=== PATIENT | male | born 1960 | race Caucasian/White ===

== ENCOUNTER → 2020-02-23 07:39 | Outpatient (CLI) | payer OTHER, SELFPAY ==
[2020-02-23 09:30] LABS: Alanine Aminotransferase 20 IU/L (<50); Albumin 4.1 g/dL (3.5-5.0); Albumin Globulin Ratio 1.4 (1.0-2.8); Alkaline Phosphatase 53 U/L (38-126); Aspartate Aminotransferase 32 IU/L (17-59); BUN Creatinine Ratio 15.9 (6-22); Bilirubin Total 0.6 mg/dL (0.2-1.3); Blood Urea Nitrogen 11 mg/dL (9-20); Calcium 9.2 mg/dL (8.4-10.2); Carbon Dioxide 35 mmol/L (22-32); Chloride 102 mmol/L (98-107); Cholesterol 241 mg/dL (140-199); Estimated Glomerular Filt Rate > 60.0 mL/min (>60); Globulin 2.9 g/dL (1.7-4.1); Glucose 100 mg/dL (70-100); HEMOLYSIS < 15 (0-50); Potassium 4.5 mmol/L (3.4-5.1); Sodium 137 mmol/L (137-145); Triglycerides 46 mg/dL (35-150)
[2020-02-23 09:47] LABS: HDL Cholesterol 114 mg/dL (40-60); LDL Cholesterol Calculated 118 mg/dL (<100)
[2020-02-23 09:59] LABS: Prostate Specific Antigen 0.825 ng/mL (0.10-4.00)
== END ==
PROVIDERS: PCP Internal Medicine; Referring Provider Internal Medicine; Visit Provider Internal Medicine
DX: Z12.5 Encounter for screening for malignant neoplasm of prostate (principal)
CPT/HCPCS: 36415; 80053; 80061; 84153

== ENCOUNTER → 2020-02-26 14:38 | Outpatient (ROUT) | payer OTHER, SELFPAY ==
[2020-02-26 15:36] LABS: TSH w/ Reflex to FT4 1.43 uIU/mL (0.47-4.68)
[2020-02-26 16:52] LABS: Vitamin B12 697 pg/mL (239-931)
== END ==
PROVIDERS: PCP Internal Medicine; Visit Provider Internal Medicine
DX: R20.0 Anesthesia of skin (principal)
CPT/HCPCS: 82607; 84443

== ENCOUNTER 2024-06-04 21:30 | Emergency (ER) | payer OTHER, SELFPAY ==
[2024-06-04] VITALS (24 sets, daily range): BP systolic 125–153; BP diastolic 68–87; PULSE 86–100; RESP 13–24; TEMP 36.4; O2SAT 94–100; BMI 21.9
--- NOTE | 2024-06-04 21:44 | DI.CT.S_ITS ---
PROCEDURE: CT CHEST ABD PEL W CON INDICATIONS: Trauma TECHNIQUE: After the administration of intravenous contrast, 5 mm thick sections acquired from the lung apices to the symphysis. 2.5 mm thick coronal and sagittal reformats were acquired. Additional 7 mm thick coronal maximum intensity projection (MIP) reformats acquired through the lungs. Optional 10-minute delayed imaging may be performed from the kidneys to the bladder. For radiation dose reduction, the following was used: automated exposure control, adjustment of mA and/or kV according to patient size. COMPARISON: None. FINDINGS: Image quality: Diagnostic. CHEST: Lower Neck: No enlarged lymph nodes. Thyroid: Normal CT appearance. Axillae: No enlarged lymph nodes. Chest Wall: No subcutaneous gas. Lungs and Pleura: No pulmonary contusions or lacerations. No acute airspace opacities. No pneumothorax or hemothorax. Mediastinum: No mediastinal hematomas. Heart size is normal. No pericardial effusion. Thoracic aorta and pulmonary arteries demonstrate normal size and enhancement. Incidental note of normal variant retroesophageal right subclavian artery. No mediastinal or hilar adenopathy. Esophagus is normal in caliber. No hiatal hernia. ABDOMEN: Liver: Several hepatic hypodensities, probably all cysts. No definite hepatic laceration or contusion. Gallbladder: No wall thickening or calcified stones. Biliary ducts: No biliary dilation. Pancreas: Homogenous enhancement. Spleen: Homogenous enhancement without laceration or hematoma. Adrenal Glands: Symmetric enhancement. Kidneys and Ureters: Symmetric enhancement. No perinephric hematoma or laceration. No perinephric inflammation. Normal ureters. Stomach and Bowel: Stomach is filled with ingested material. Small bowel loops are nondistended. No suspicious inflammation or wall thickening to suggest bowel wall hematoma. No interloop fluid. Colon is within normal limits. Peritoneum: No abnormal intraperitoneal fluid. No free air. Ventral Wall: No hernia. Possible small right flank contusion. Abdominal Nodes: No retroperitoneal or mesenteric adenopathy by size criteria. No retroperitoneal hematoma. Vessels: The abdominal aorta, IVC, and portal vein are of normal caliber. PELVIS: Pelvic Organs: Unremarkable. Bladder: Intact. Pelvic Nodes: No enlarged lymph nodes. Miscellaneous: No inguinal hernias are seen. Bones: Pelvic ring and hip joints appear intact. No displaced rib fractures. There is a chronic appearing left L1 transverse process fracture. IMPRESSION: No CT evidence of acute internal trauma to the chest, abdomen, or pelvis. Possible small right flank contusion. Correlate clinically. Dictated by: Jayne Rogers M.D. on 06/04/2024 at 22:46 Approved by: Jayne Rogers M.D. on 06/04/2024 at 22:59
--- NOTE | 2024-06-04 21:44 | DI.CT.S_ITS ---
PROCEDURE: CT HEAD/BRAIN WO CON INDICATIONS: Trauma TECHNIQUE: Noncontrast 4.5 mm thick angled axial sections acquired from the foramen magnum to the vertex, with coronal and sagittal reformats. For radiation dose reduction, the following was used: automated exposure control, adjustment of mA and/or kV according to patient size. COMPARISON: None. FINDINGS: Image quality: Diagnostic. CSF spaces: Basal cisterns are patent. No extra-axial fluid collections. Ventricles are normal in size and shape. Brain: No midline shift. No intracranial masses or hemorrhage. Allan-white matter interface is normal. Skull and face: Calvarium and visualized facial bones are intact, without suspicious lesions. Sinuses: Visualized sinuses and mastoids are clear. IMPRESSION: 1. No CT evidence of acute intracranial trauma. 2. No significant soft tissue injury or underlying fracture. Dictated by: Jayne Rogers M.D. on 06/04/2024 at 22:39 Approved by: Jayne Rogers M.D. on 06/04/2024 at 22:42
--- NOTE | 2024-06-04 21:44 | DI.CT.S_ITS ---
PROCEDURE: CT CERVICAL SPINE WO CON INDICATIONS: trauma TECHNIQUE: Noncontrast 3 mm thick sections acquired from the skull base to the T4 level. Sagittal and coronal reformats were then constructed. For radiation dose reduction, the following was used: automated exposure control, adjustment of mA and/or kV according to patient size. COMPARISON: None. FINDINGS: Image quality: Excellent. Bones: The craniocervical junction is intact. Mild degenerative space loss and spurring at the atlantodental interval. No cervical vertebral body fractures or pathologic subluxation. Mild disc and endplate degeneration at C6-7. Soft tissues: Prevertebral soft tissues are normal in thickness. No paravertebral hematomas. No apical pneumothoraces. IMPRESSION: No displaced fracture or traumatic subluxation. Dictated by: Jayne Rogers M.D. on 06/04/2024 at 22:42 Approved by: Jayne Rogers M.D. on 06/04/2024 at 22:45
[2024-06-04 22:00] LABS: Add Manual Diff / Slide Review NO; Basophils Absolute Auto 300 /uL (0-100); Basophils Percent Auto 2.9 % (0-2); Eosinophils Absolute Auto 300 /uL (0-450); Eosinophils Percent Auto 2.8 % (2-4); Hematocrit 40.9 % (41-53); Hemoglobin 14.1 g/dL (13.5-17.5); Lymphocytes Absolute Auto 2200 /uL (1100-4500); Lymphocytes Percent Auto 21.8 % (25-40); Mean Corpuscular HGB Conc 34.5 % (30-36); Mean Corpuscular Hemoglobin 32.1 PG (26-34); Monocytes Absolute Auto 600 /uL (0-900); Monocytes Percent Auto 5.8 % (3-14); Neutrophils Absolute Auto 6600 /uL (1500-7000); Neutrophils Percent Auto 66.7 % (50-75); Platelet Count 268 X10^3/uL (150-400); Red Cell Distribution Width 13.2 % (11.6-14.8); White Blood Cell Count 9.9 X10^3/uL (4.5-11.0)
--- NOTE | 2024-06-04 22:05 | ED_ITS ---
HPI - Fall General Chief Complaint: Fall Stated Complaint: Fell out of treehouse-neck pain-15ft fall Time Seen by Provider: 06/04/24 21:37 Source: patient and family Mode of arrival: Ambulatory History of Present Illness HPI Narrative: 63-year-old male without any significant past medical history presents to the emergency department from home for evaluation of neck pain. He states that an hour prior to arrival he fell out of his tree house which was a proximally 15 ft off the floor. He states that he landed onto his back. Denies head strike, not on any blood thinners, only complaining of neck pain. Patient was evaluated immediately upon arrival here in the emergency department. He was placed in a C-collar for precautions, he was wheeled back to the Tra[facility] and modified trauma was called. On evaluation patient only complaining of neck pain he is neurovascularly intact bilateral upper lower extremities. Related Data Home Medications Medication Instructions Recorded Confirmed ASPIRIN (Aspirin EC) 81 mg PO Q DAY ##0 11/18/10 CA PANTOTHENATE/FOLIC ACID/VIT 1 tab PO Q DAY ##0 11/18/10 (MULTIVITAMIN) Fexofenadine Hydrochloride 60 mg PO PRN ##0 11/18/10 (#ZHANNA) PIRBUTEROL ACETATE (MAXAIR 0.2 mg IH PRN ##0 11/18/10 AUTOHALER) finasteride 1 mg tablet (Propecia) 1 mg PO PRN ##0 11/24/10 Previous Rx's Medication Instructions Recorded methocarbamol 500 mg tablet 500 mg PO BEDTIME PRN pain 1 week 06/04/24 #7 tabs naproxen 500 mg tablet (Naprosyn) 500 mg PO BID PRN pain 1 week #14 06/04/24 tabs Allergies Allergy/AdvReac Type Severity Reaction Status Date / Time azithromycin Allergy Intermediate Verified 06/04/24 23:07 amoxicillin Allergy Unknown Verified 06/04/24 23:07 doxycycline Allergy Unknown Verified 06/04/24 23:07 Cephalosporin Allergy Unknown Uncoded 06/04/24 23:07 Erythromycin Allergy Unknown Uncoded 06/04/24 23:07 Macrolide/Antibacterial Allergy Unknown Uncoded 06/04/24 23:07 Penicillin Allergy Unknown Uncoded 06/04/24 23:07 Review of Systems Review of Systems Narrative: General: Positive fall, Denies fever, chills, weight loss HEENT: Denies headache, eye drainage, eye irritation, head trauma, sore throat, voice change Cardiovascular: Denies any chest pain, palpitations, tachycardia Respiratory: Denies any shortness of breath, cough, wheeze, stridor GI/: Denies any abdominal pain, nausea, vomiting, diarrhea, bright red blood per rectum, melanotic stools, urinary frequency, urinary retention, dysuria, hematuria MSK: Positive neck pain Skin: Denies any rashes, lesions, discoloration Neuro: Denies any headache, lightheadedness, dizziness, fainting, weakness Psych: Denies SI/HI Patient History Social History Smoking Status: Never smoker Smoking Status: Never smoker Alcohol type: beer Exam Narrative Exam Narrative: General: Cooperative, well-developed, not in acute distress HEENT: Normocephalic, atraumatic, PERRLA, normal sclera, eyelids normal Neck: Minor tenderness to palpation of the midline cervical spine but no palpable step-offs, patient in C-collar for precautions, Chest: Normal to inspection, negative crepitus, no overlying erythema ecchymosis Respiratory: Normal respiratory effort, not in acute respiratory distress, clear to auscultation bilaterally negative cough, wheeze, tachypnea, rhonchi, rales Cardiology: Regular rate rhythm negative gallop, murmur, rubs GI/: No tenderness to palpation, soft, non rigid, normal to inspection, exam deferred MSK: Patient is able to move all 4 extremities spontaneously there is no other tenderness to palpation of any bony prominences, there is a small ecchymosis noted to the sacrum however perineum is clear, he is neurovascularly intact to bilateral upper and lower extremities Skin: No rashes or lesions noted Neuro: Alert awake oriented x3, moves all 4 extremities spontaneously, cranial nerves intact, able to answer all questions appropriately follows commands appropriately Psych: Cooperative, negative suicidal or homicidal ideations Initial Vital Signs Initial Vital Signs: Vital Signs Temperature 97.6 F 06/04/24 21:32 Pulse Rate 86 06/04/24 21:32 Respiratory Rate 18 06/04/24 21:32 Blood Pressure 142/79 H 06/04/24 21:32 Pulse Oximetry 99 06/04/24 21:32 Oxygen Delivery Method Room Air 06/04/24 21:32 Course Orders Ordered: ED Orders 06/04/24 21:44 CT cervical spine wo con Stat CT chest abd pel w con Stat CT head/brain wo con Stat 06/04/24 21:50 CBC Auto Diff [Complete Blood Count AUTO DIFF] Stat CMP [Comprehensive Metabolic Panel] Stat Discontinued Medications Sodium Chloride (Normal Saline 0.9%) 1,000 mls @ 1,000 mls/hr IV BOLUS ONE Stop: 06/04/24 22:42 Last Infusion: 06/04/24 23:06 Dose: Infused Documented By: Admin: 06/04/24 22:13 Dose: 1,000 mls/hr Documented By: CELSO Acetaminophen (Ofirmev) 1,000 mg in 100 mls @ 400 mls/hr IV NOW ONE Stop: 06/04/24 22:44 Last Infusion: 06/04/24 22:58 Dose: Infused Documented By: Admin: 06/04/24 22:35 Dose: 400 mls/hr Documented By: CELSO Morphine Sulfate (Morphine 4 Mg/Ml Inj) 4 mg IV NOW ONE Stop: 06/04/24 21:44 Last Admin: 06/04/24 22:14 Dose: Not Given Documented By: CELSO Vital Signs Vital signs: Vital Signs - 8 hr 06/04/24 21:32 06/04/24 21:39 06/04/24 21:39 Temperature 97.6 F Pulse Rate 86 86 Respiratory Rate 18 18 Blood Pressure 142/79 H 153/87 H Pulse Oximetry 99 100 Oxygen Delivery Method Room Air 06/04/24 21:50 06/04/24 21:50 06/04/24 21:51 Temperature Pulse Rate 89 87 Respiratory Rate 22 16 Blood Pressure 136/81 Pulse Oximetry 100 98 Oxygen Delivery Method 06/04/24 21:51 06/04/24 21:55 06/04/24 21:55 Temperature Pulse Rate 87 Respiratory Rate 13 Blood Pressure 138/82 132/76 Pulse Oximetry 100 Oxygen Delivery Method 06/04/24 22:00 06/04/24 22:00 06/04/24 22:05 Temperature Pulse Rate 91 H Respiratory Rate 17 Blood Pressure 136/75 136/79 Pulse Oximetry 96 Oxygen Delivery Method 06/04/24 22:05 06/04/24 22:10 06/04/24 22:10 Temperature Pulse Rate 92 H 88 Respiratory Rate 16 Blood Pressure 132/74 Pulse Oximetry 97 94 Oxygen Delivery Method 06/04/24 22:15 06/04/24 22:15 06/04/24 22:20 Temperature Pulse Rate 87 Respiratory Rate Blood Pressure 133/70 125/68 Pulse Oximetry 98 Oxygen Delivery Method 06/04/24 22:20 06/04/24 22:24 06/04/24 22:25 Temperature Pulse Rate 87 90 Respiratory Rate 22 Blood Pressure 130/68 Pulse Oximetry 98 97 Oxygen Delivery Method Room Air 06/04/24 22:25 06/04/24 22:30 06/04/24 22:35 Temperature Pulse Rate 88 93 H Respiratory Rate Blood Pressure 133/75 Pulse Oximetry 98 99 Oxygen Delivery Method 06/04/24 22:35 06/04/24 22:40 06/04/24 22:40 Temperature Pulse Rate 93 H 93 H Respiratory Rate 22 Blood Pressure 137/77 Pulse Oximetry 96 98 Oxygen Delivery Method 06/04/24 22:46 06/04/24 22:46 06/04/24 22:50 Temperature Pulse Rate 95 H Respiratory Rate 24 Blood Pressure 136/77 135/73 Pulse Oximetry 100 Oxygen Delivery Method 06/04/24 22:50 06/04/24 22:55 06/04/24 22:55 Temperature Pulse Rate 93 H 90 Respiratory Rate 18 20 Blood Pressure 134/76 Pulse Oximetry 97 98 Oxygen Delivery Method Room Air MDM - Fall Differential Diagnosis Differential diagnosis: Likely other (Closed head injury, cervical neck fracture, vertebral fracture) Lab Data 06/04/24 21:50 06/04/24 21:50 Labs: Lab Results 06/04/24 Range/Units 21:50 WBC 9.9 (4.5-11.0) X10^3/uL RBC 4.40 L (4.5-5.9) X10^6/uL Hgb 14.1 (13.5-17.5) g/dL Hct 40.9 L (41-53) % MCV 93.0 (80-100) fL MCH 32.1 (26-34) PG MCHC 34.5 (30-36) % RDW 13.2 (11.6-14.8) % Plt Count 268 (150-400) X10^3/uL Neut % (Auto) 66.7 (50-75) % Lymph % (Auto) 21.8 L (25-40) % Terrell % (Auto) 5.8 (3-14) % Eos % (Auto) 2.8 (2-4) % Baso % (Auto) 2.9 H (0-2) % Neut # (Auto) 6600 (4929-7546) /uL Lymph # (Auto) 2200 (8692-4737) /uL Terrell # (Auto) 600 (0-900) /uL Eos # (Auto) 300 (0-450) /uL Baso # (Auto) 300 H (0-100) /uL Sodium 136 L (137-145) mmol/L Potassium 3.3 L (3.4-5.1) mmol/L Chloride 100 (98-107) mmol/L Carbon Dioxide 28 (22-32) mmol/L BUN 15 (9-20) mg/dL Creatinine 0.83 (0.66-1.25) mg/dL Estimated GFR > 60 (>60) mL/min BUN/Creatinine Ratio 18.1 (6-22) Glucose 136 H (80-110) mg/dL Calcium 9.4 (8.4-10.2) mg/dL Total Bilirubin 0.7 (0.2-1.3) mg/dL AST 46 (17-59) IU/L ALT 25 (<50) IU/L Alkaline Phosphatase 63 (38-126) U/L Total Protein 7.5 (6.3-8.2) g/dL Albumin 4.4 (3.5-5.0) g/dL Globulin 3.1 (1.7-4.1) g/dL Albumin/Globulin Ratio 1.4 (1.0-2.8) Imaging Data CT scan - head: Radiologist's Impression: [place] [address] CT Scan Report Signed Patient: Mac Orantes MR#: [id number] : 1960 Acct:[id number] Age/Sex: 63 / M Date of Service: 06/04/24 Loc: ED Accession Number: [id number] Procedure: CT head/brain wo con Ordering Provider: Vel Cobb D.O. PROCEDURE: CT HEAD/BRAIN WO CON INDICATIONS: Trauma TECHNIQUE: Noncontrast 4.5 mm thick angled axial sections acquired from the foramen magnum to the vertex, with coronal and sagittal reformats. For radiation dose reduction, the following was used: automated exposure control, adjustment of mA and/or kV according to patient size. COMPARISON: None. FINDINGS: Image quality: Diagnostic. CSF spaces: Basal cisterns are patent. No extra-axial fluid collections. Ventricles are normal in size and shape. Brain: No midline shift. No intracranial masses or hemorrhage. Allan-white matter interface is normal. Skull and face: Calvarium and visualized facial bones are intact, without suspicious lesions. Sinuses: Visualized sinuses and mastoids are clear. IMPRESSION: 1. No CT evidence of acute intracranial trauma. 2. No significant soft tissue injury or underlying fracture. CT - cervical spine: Radiologist's Impression: [place] [address] CT Scan Report Signed Patient: Mac Orantes MR#: [id number] : 1960 Acct:[id number] Age/Sex: 63 / M Date of Service: 06/04/24 Loc: ED Accession Number: [id number] Procedure: CT cervical spine wo con Ordering Provider: Vel Cobb D.O. PROCEDURE: CT CERVICAL SPINE WO CON INDICATIONS: trauma TECHNIQUE: Noncontrast 3 mm thick sections acquired from the skull base to the T4 level. Sagittal and coronal reformats were then constructed. For radiation dose reduction, the following was used: automated exposure control, adjustment of mA and/or kV according to patient size. COMPARISON: None. FINDINGS: Image quality: Excellent. Bones: The craniocervical junction is intact. Mild degenerative space loss and spurring at the atlantodental interval. No cervical vertebral body fractures or pathologic subluxation. Mild disc and endplate degeneration at C6-7. Soft tissues: Prevertebral soft tissues are normal in thickness. No paravertebral hematomas. No apical pneumothoraces. IMPRESSION: No displaced fracture or traumatic subluxation. CT chest abdomen and pelvis: Radiologist's Impression: [address] [address] [address] Scan Report Signed Patient: Mac Orantes MR#: [id number] : 1960 Acct:[id number] Age/Sex: 63 / M Date of Service: 06/04/24 Loc: ED Accession Number: [id number] Procedure: CT chest abd pel w con Ordering Provider: Vel Cobb D.O. PROCEDURE: CT CHEST ABD PEL W CON INDICATIONS: Trauma TECHNIQUE: After the administration of intravenous contrast, 5 mm thick sections acquired from the lung apices to the symphysis. 2.5 mm thick coronal and sagittal reformats were acquired. Additional 7 mm thick coronal maximum intensity projection (MIP) reformats acquired through the lungs. Optional 10-minute delayed imaging may be performed from the kidneys to the bladder. For radiation dose reduction, the following was used: automated exposure control, adjustment of mA and/or kV according to patient size. COMPARISON: None. FINDINGS: Image quality: Diagnostic. CHEST: Lower Neck: No enlarged lymph nodes. Thyroid: Normal CT appearance. Axillae: No enlarged lymph nodes. Chest Wall: No subcutaneous gas. Lungs and Pleura: No pulmonary contusions or lacerations. No acute airspace opacities. No pneumothorax or hemothorax. Mediastinum: No mediastinal hematomas. Heart size is normal. No pericardial effusion. Thoracic aorta and pulmonary arteries demonstrate normal size and enhancement. Incidental note of normal variant retroesophageal right subclavian artery. No mediastinal or hilar adenopathy. Esophagus is normal in caliber. No hiatal hernia. ABDOMEN: Liver: Several hepatic hypodensities, probably all cysts. No definite hepatic laceration or contusion. Gallbladder: No wall thickening or calcified stones. Biliary ducts: No biliary dilation. Pancreas: Homogenous enhancement. Spleen: Homogenous enhancement without laceration or hematoma. Adrenal Glands: Symmetric enhancement. Kidneys and Ureters: Symmetric enhancement. No perinephric hematoma or laceration. No perinephric inflammation. Normal ureters. Stomach and Bowel: Stomach is filled with ingested material. Small bowel loops are nondistended. No suspicious inflammation or wall thickening to suggest bowel wall hematoma. No interloop fluid. Colon is within normal limits. Peritoneum: No abnormal intraperitoneal fluid. No free air. Ventral Wall: No hernia. Possible small right flank contusion. Abdominal Nodes: No retroperitoneal or mesenteric adenopathy by size criteria. No retroperitoneal hematoma. Vessels: The abdominal aorta, IVC, and portal vein are of normal caliber. PELVIS: Pelvic Organs: Unremarkable. Bladder: Intact. Pelvic Nodes: No enlarged lymph nodes. Miscellaneous: No inguinal hernias are seen. Bones: Pelvic ring and hip joints appear intact. No displaced rib fractures. There is a chronic appearing left L1 transverse process fracture. IMPRESSION: No CT evidence of acute internal trauma to the chest, abdomen, or pelvis. Possible small right flank contusion. Correlate clinically. MDM Narrative Medical decision making narrative: 63-year-old male without any significant past medical history presents for neck pain after a fall from 15 ft high tree house 1 hour prior to arrival. Denies head strike, was able to stand bear weight ambulate immediately after the episode. Patient had modified trauma called immediately and placed in C-collar for precautions. His only abnormality on exam and log roll was minor tenderness to palpation of the cervical spine as well as a small ecchymosis noted to the sacral region. He is neurovascularly intact in bilateral upper and lower extremities. He is not taking any blood thinners. Patient had CT scan of his head neck chest abdomen and pelvis without any acute traumatic injuries. Patient was able to stand bear weight ambulate here in the emergency department, no focal deficits, be sent home with symptomatic relief instructed follow up with primary care in outpatient setting strict return precautions given he verbalized understanding of this and agrees to being discharged home with outpatient follow up Discharge Plan Departure Patient Disposition: Home Clinical Impression: Closed head injury, Acute neck pain, Contusion Activity Restrictions/Additional Instructions: Please follow up with your primary care doctor Please read the discharge instructions sheet carefully and bring all papers to all doctor follow-up visits, as it may contain information that your doctor may want to see. Disease processes change and evolve, if your symptoms worsen or if you develop any new symptoms that are concerning to you please return for evaluation. Your evaluation today does not show any evidence of any life- threatening/serious illnesses requiring admission to the hospital or surgery. Please follow-up with your doctor for re-evaluation in approximately 1 day. Seek immediate medical attention for any worrisome symptoms. *If you do not have a primary care provider please contact the [facility] Resource line at [phone]. They will ask some questions about your medical history and help get you set up with a doctor in the community. Prescriptions: New methocarbamol 500 mg tablet 500 mg PO BEDTIME PRN (Reason: pain) 7 Days Qty: 7 0RF naproxen [Naprosyn] 500 mg tablet 500 mg PO BID PRN (Reason: pain) 7 Days Qty: 14 0RF No Action CA PANTOTHENATE/FOLIC ACID/VIT (MULTIVITAMIN) 1 tab PO Q DAY Qty: 0 ASPIRIN (Aspirin EC) 81 mg PO Q DAY Qty: 0 Fexofenadine Hydrochloride (#ZHANNA) 60 mg PO PRN Qty: 0 PIRBUTEROL ACETATE (MAXAIR AUTOHALER) 0.2 mg IH PRN Qty: 0 finasteride [Propecia] 1 MG tablet 1 mg PO PRN Qty: 0 Referrals: Bartolome Loja MD [Primary Care Provider] - Stand Alone Forms: Patient Portal/API/Survey
[2024-06-04 22:11] LABS: Alanine Aminotransferase 25 IU/L (<50); Albumin 4.4 g/dL (3.5-5.0); Albumin Globulin Ratio 1.4 (1.0-2.8); Alkaline Phosphatase 63 U/L (38-126); Aspartate Aminotransferase 46 IU/L (17-59); BUN Creatinine Ratio 18.1 (6-22); Bilirubin Total 0.7 mg/dL (0.2-1.3); Blood Urea Nitrogen 15 mg/dL (9-20); Calcium 9.4 mg/dL (8.4-10.2); Carbon Dioxide 28 mmol/L (22-32); Chloride 100 mmol/L (98-107); Estimated Glomerular Filt Rate > 60 mL/min (>60); Globulin 3.1 g/dL (1.7-4.1); Glucose 136 mg/dL (80-110); HEMOLYSIS < 15 (0-50); Potassium 3.3 mmol/L (3.4-5.1); Sodium 136 mmol/L (137-145); Total Protein 7.5 g/dL (6.3-8.2)
[2024-06-04] MEDS: SODIUM CHLORIDE 0.9% 1,000 ML 1000 ML IV (22:13)
[2024-06-04] MEDS: ACETAMINOPHEN IV 1,000 MG/100 ML VIAL 400 MG IV (22:35)
== END 2024-06-05 00:03 | disposition home or self-care (01) ==
PROVIDERS: Emergency Provider Student in an Organized Health Care Education/Training Program; PCP Internal Medicine
DX: S09.8XXA Other specified injuries of head, initial encounter (principal); S30.0XXA Contusion of lower back and pelvis, initial encounter; M54.2 Cervicalgia; W17.89XA Other fall from one level to another, initial encounter
CPT/HCPCS: 36415; 70450; 71260; 72125; 74177; 80053; 85025; 96365; 99284; J0131; Q9967

== ENCOUNTER → 2024-11-21 07:26 | Outpatient (CLI) | payer OTHER, SELFPAY ==
[2024-11-21 08:14] LABS: Hematocrit 40.6 % (41-53); Hemoglobin 13.9 g/dL (13.5-17.5); Mean Corpuscular HGB Conc 34.3 % (30-36); Mean Corpuscular Hemoglobin 31.7 PG (26-34); Mean Corpuscular Volume 92.4 fL (80-100); Platelet Count 237 X10^3/uL (150-400)
[2024-11-21 08:41] LABS: Alanine Aminotransferase 17 IU/L (<50); Albumin 4.4 g/dL (3.5-5.0); Albumin Globulin Ratio 1.5 (1.0-2.8); Alkaline Phosphatase 53 U/L (38-126); Blood Urea Nitrogen 9 mg/dL (9-20); Calcium 9.0 mg/dL (8.4-10.2); Carbon Dioxide 26 mmol/L (22-32); Chloride 104 mmol/L (98-107); Cholesterol 253 mg/dL (140-199); Estimated Glomerular Filt Rate > 60 mL/min (>60); Globulin 2.9 g/dL (1.7-4.1); Glucose 109 mg/dL (70-99); HEMOLYSIS < 15 (0-50); Potassium 4.5 mmol/L (3.4-5.1); Sodium 137 mmol/L (137-145); Total Protein 7.3 g/dL (6.3-8.2); Triglycerides 65 mg/dL (35-150); VLDL Cholesterol Calculated 13 mg/dL (2-30)
[2024-11-21 09:20] LABS: HDL Cholesterol 118 mg/dL (40-60)
== END ==
PROVIDERS: PCP Physician Assistant; Referring Provider Family Medicine; Visit Provider Family Medicine
DX: E78.5 Hyperlipidemia, unspecified (principal); Z13.9 Encounter for screening, unspecified; Z13.228 Encounter for screening for other metabolic disorders
CPT/HCPCS: 36415; 80053; 80061; 85027; G0103